=== PATIENT | female | born 1940 | race Hispanic/Latino ===

== ENCOUNTER 2024-11-27 10:45 | Emergency (ER) | payer MEDICARE, OTHER ==
[~2024-11-27] VITALS: Ht 157.5 cm; Wt 99.8 kg
[~2024-11-27 10:45] MED LIST: GABAPENTIN300 MG PO; LASIX20 MG PO; LEVOTHYROXINE112 MCG PO; TRIAMTERENE-HCTZ1 EA PO
[2024-11-27 10:59] VITALS: TEMP 98.8
[2024-11-27 11:53] LABS: BASOPHILS % 0.2 % (0.0-1.0); EOSINOPHILS # (AUTO) 0.1 (0.0-0.4); EOSINOPHILS % 0.6 % (0.0-6.0); HEMATOCRIT 38.3 % (34.2-44.1); HEMOGLOBIN 12.2 g/dL (12.0-16.0); LYMPHOCYTES # (AUTO) 1.7 (1.0-3.2); LYMPHOCYTES % 19.6 % (18.0-39.1); MEAN CORPUSCULAR HGB CONC 31.9 g/dL (31-35); MEAN CORPUSCULAR VOLUME 94.1 fL (81-99); MONOCYTES # (AUTO) 0.6 (0.2-0.8); MONOCYTES % 6.5 % (4.4-11.3); NEUTROPHILS # (AUTO) 6.5 (2.1-6.9); NEUTROPHILS % 72.9 % (38.7-80.0); PLATELET COUNT 260 x10e3/uL (140-360); RED BLOOD COUNT 4.07 x10e6/uL (3.6-5.1); WHITE BLOOD COUNT 8.89 x10e3/uL (4.8-10.8)
[2024-11-27 12:05] LABS: ALBUMIN 3.3 g/dL (3.5-5.0); ALBUMIN/GLOBULIN RATIO 0.9 (0.8-2.0); ANION GAP 14.5 mmol/L (8-16); BILIRUBIN,TOTAL 0.8 mg/dL (0.2-1.2); CALCIUM 8.7 mg/dL (8.4-10.2); CREATININE, SERUM 1.03 mg/dL (0.57-1.11); POTASSIUM 4.5 mmol/L (3.5-5.1); TOTAL PROTEIN 6.8 g/dL (6.5-8.1)
[2024-11-27] MEDS ORDERED: IOPAMIDOL 370 MG/ML 100 ML INFUS..BTL INJ ONE (12:33)
[2024-11-27] MEDS: ACETAMINOPHEN 1000 MG/100 ML IV STA (12:41)
[2024-11-27 14:34] VITALS: PULSE 62; RESP 18
[2024-11-27] MEDS ORDERED: METRONIDAZOLE500 MG PO (15:48)
[2024-11-27] MEDS ORDERED: ACETAMINOPHEN500 M1 PO (15:48)
[2024-11-27] MEDS ORDERED: BACTRIM DS TAB1 EACH PO (15:48)
[2024-11-27] MEDS ORDERED: METHOCARBAMOL500 MG PO (15:52)
[2024-11-27] MEDS: TRIMETHOPRIM/SULFAMETHOXAZOLE 160-800 MG TAB PO ONE (16:06)
[2024-11-27] MEDS: METRONIDAZOLE 500 MG TAB PO ONE (16:10)
[2024-11-27 16:11] VITALS: BP 124/65; PULSE 68; RESP 18; TEMP 98.6; O2SAT 98
== END 2024-11-27 16:15 | disposition home or self-care (01) ==
LOC: ER 11:41
DX: R10.32 Left lower quadrant pain (principal); K57.32 Diverticulitis of large intestine without perforation or abscess without bleeding; M79.605 Pain in left leg; M79.604 Pain in right leg; M79.7 Fibromyalgia
CPT/HCPCS: 36415; 74177; 80053; 83880; 85025; 99284; J0131; Q9967